=== PATIENT | female | born 1975 | race African-American/Black ===

== ENCOUNTER 2017-08-25 08:10 | Outpatient (CLI) | payer OTHER ==
[~2017-08-25 08:10] MED LIST: FERRIC CARBOXYMALTOSE 750 MG in NORMAL SALINE 250 ML IV PRN; NORMAL SALINE 250 ML IV PRN
[2017-08-25 08:53] VITALS: BP 124/78
== END 2017-08-25 09:55 | disposition home or self-care (01) ==
LOC: II 08:10 → 5TH 08:19 → II 09:55
PROVIDERS: ATTEND Internal Medicine
PROC: 3E033GC Introduction of Other Therapeutic Substance into Peripheral Vein, Percutaneous Approach (ICD-10-PCS; principal; 2017-08-25)
DX: D50.9 Iron deficiency anemia, unspecified (principal); K90.9 Intestinal malabsorption, unspecified
CPT/HCPCS: 96365; J7050; J1439

== ENCOUNTER 2017-09-01 08:21 | Outpatient (CLI) | payer OTHER ==
[2017-09-01 09:29] VITALS: BP 126/81
== END 2017-09-01 09:53 | disposition home or self-care (01) ==
LOC: 5TH 08:21 → II 08:21
PROVIDERS: ATTEND Internal Medicine
PROC: 3E033GC Introduction of Other Therapeutic Substance into Peripheral Vein, Percutaneous Approach (ICD-10-PCS; principal; 2017-09-01)
DX: D50.9 Iron deficiency anemia, unspecified (principal); K90.9 Intestinal malabsorption, unspecified
CPT/HCPCS: 96365; J7050; J1439